=== PATIENT | female | born 1985 | race Caucasian/White ===

== ENCOUNTER 2016-12-16 12:27 | Emergency (ER) | payer OTHER ==
[~2016-12-16] VITALS: Ht 157.5 cm; Wt 136.1 kg
[~2016-12-16 12:27] MED LIST: 'zithromax250 MG PO; ALBUTEROL0.09 MG/A2 INH; AMOXICILLIN500 M3 PO; AMOXICILLIN500 MG PO; AMOXIL500 M1 PO; ATIVAN1 MG PO; AUGMENTIN 875875 MG PO; BACTRIM DS 8001 TA1 PO; BACTROBAN CREAM15 GM T; BENADRYL ALLERG25 M5 PO; BENADRYL25 M1 PO; BENADRYL25 M2 PO; BIRTH CONTROL PO; CALCIUM600 M2 PO; CELEXA40 MG PO; CEPHALEXIN500 M1 PO; CIPROFLOXACIN500 MG PO; CLARITIN10 MG PO; CLEOCIN150 MG PO; CLINDAMYCIN HC300 MG PO; CLINDAMYCIN150 MG PO; COLACE100 MG PO; COMBIVENT1 ARO IH; CORDROL20 MG PO; CYCLOBENZAPRINE5 M3 PO; DARVOCET N 1001 TAB PO; DELTASONE20 M1 PO; DIFLUCAN150 MG PO; DOXYCYCLINE100 MG PO; FLEXERIL10 MG PO; FLONASE 0.05% 121 EA NAS; FLONASE ALLERG9.9 ML NAS; FLONASE ALLERG9.9 ML NS; FLONASE0.05 MG/AC NS; FLUTICASON0.05 MG/AC NAS; Fioricet 325 MG1 TAB PO; GOOD NEIGHBOR L10 MG PO; IBU800 M1 PO; IBU800 MG PO; KEFLEX500 MG PO; LAMICTAL ODT50 MG MM; LEVOFLOXACIN500 MG PO; LIDEX 0.05% CRE15 GM T; LOMOTIL 0.025 M1 TA1 PO; LORAZEPAM1 MG PO; MACROBID100 M1 PO; MACRODANTIN100 MG PO; MEDROL DOSEPAK4 MG PO; MELATONIN1 M1 PO; MIRALAX17 GM PO; MONO-LINYAH 281 EACH PO; MOTRIN800 MG PO; Motrin,Rufen800 MG PO; NAPROSYN500 MG PO; NATURAL ZINC1 TAB PO; NKHM PO; NORCO 10-325 T1 EACH PO; OMEPRAZOLE MAGN20 MG PO; ONE DAILY ESSE1 EACH PO; Orphenadrine C100 MG PO; PEPCID20 MG PO; PHENERGAN W/DM120 ML PO; PREDNICOT10 MG PO; PREDNICOT20 MG PO; PREDNISONE10 MG PO; PREDNISONE20 M1 PO; PROVENTIL0.09 MG/A1 INH; PYRIDIUM200 M1 PO; PYRIDIUM200 MG PO; ROBITUSSIN DM 105 ML PO; ROBITUSSIN5 ML PO; TAB-A-VITE1 TA1 PO; TESSALON PERLE100 M1 PO; TRAMADOL HCL50 MG PO; TYLENOL325 M1 PO; ULTRAM50 MG PO; VIBRAMYCIN100 MG PO; VISTARIL25 MG PO; VITAMIN C500 M4 PO; VITAMIN D-32000 UNI1 PO; VITAMIN E400 UNI2 PO; WELLBUTRIN SR150 MG PO; ZANTAC 150150 MG PO; ZITHROMAX Z PA250 MG PO; ZOFRAN ODT4 MG SL; ZOFRAN4 MG PO; ZYRTEC10 M3 PO; ZYRTEC10 MG PO; Zofran4 MG PO
[2016-12-16] MEDS ORDERED: COL-RITE100 M1 PO (12:39)
[2016-12-16] MEDS ORDERED: MONO-LINYAH 281 EACH PO (12:40)
[2016-12-16] MEDS ORDERED: APAP325 MG PO (13:40)
== END 2016-12-16 14:45 | disposition home or self-care (01) ==
LOC: ED 12:27
DX: S46.912A Strain of unspecified muscle, fascia and tendon at shoulder and upper arm level, left arm, initial encounter (principal); F17.200 Nicotine dependence, unspecified, uncomplicated; I10 Essential (primary) hypertension; F41.9 Anxiety disorder, unspecified; K21.9 Gastro-esophageal reflux disease without esophagitis; K58.9 Irritable bowel syndrome, unspecified; G40.909 Epilepsy, unspecified, not intractable, without status epilepticus; Z79.899 Other long term (current) drug therapy; Z91.041 Radiographic dye allergy status; Z88.1 Allergy status to other antibiotic agents; Z88.5 Allergy status to narcotic agent; Z91.040 Latex allergy status; Y04.0XXA Assault by unarmed brawl or fight, initial encounter; Y93.89 Activity, other specified; Y92.22 Religious institution as the place of occurrence of the external cause; Y99.9 Unspecified external cause status

== ENCOUNTER 2016-12-26 19:12 | Emergency (ER) | payer OTHER ==
[~2016-12-26 19:12] MED LIST changes: +APAP325 MG PO; +COL-RITE100 M1 PO
[2016-12-26] MEDS ORDERED: TRAZODONE50 MG PO (19:29)
[2016-12-26] MEDS ORDERED: PREDNISONE10 MG PO (20:44)
[2016-12-26] MEDS ORDERED: CLARITIN10 MG PO (20:44)
[2016-12-26] MEDS ORDERED: ROBITUSSIN DM 105 ML PO (20:44)
[2016-12-26] MEDS ORDERED: FLONASE ALLERG9.9 ML NAS (20:44)
== END 2016-12-26 21:12 | disposition home or self-care (01) ==
LOC: ED 19:12
DX: B34.9 Viral infection, unspecified (principal); R03.0 Elevated blood-pressure reading, without diagnosis of hypertension; G43.909 Migraine, unspecified, not intractable, without status migrainosus; I10 Essential (primary) hypertension; K21.9 Gastro-esophageal reflux disease without esophagitis; K58.9 Irritable bowel syndrome, unspecified; F41.9 Anxiety disorder, unspecified; Z88.1 Allergy status to other antibiotic agents; Z88.6 Allergy status to analgesic agent; Z91.018 Allergy to other foods; Z91.030 Bee allergy status; Z91.013 Allergy to seafood

== ENCOUNTER 2016-12-29 13:00 | Emergency (ER) | payer OTHER ==
[~2016-12-29] VITALS: Wt 136.5 kg
[~2016-12-29 13:00] MED LIST changes: +TRAZODONE50 MG PO
== END 2016-12-29 16:12 | disposition home or self-care (01) ==
LOC: ED 13:00
DX: S16.1XXA Strain of muscle, fascia and tendon at neck level, initial encounter (principal); S09.90XA Unspecified injury of head, initial encounter; F17.200 Nicotine dependence, unspecified, uncomplicated; Z79.899 Other long term (current) drug therapy; Z91.013 Allergy to seafood; Z91.038 Other insect allergy status; Z88.1 Allergy status to other antibiotic agents; Z88.5 Allergy status to narcotic agent; Z91.040 Latex allergy status; Y08.89XA Assault by other specified means, initial encounter; Y93.89 Activity, other specified; Y92.89 Other specified places as the place of occurrence of the external cause; Y99.9 Unspecified external cause status

== ENCOUNTER 2017-01-17 09:21 | Emergency (ER) | payer OTHER ==
[~2017-01-17] VITALS: Ht 157.4 cm; Wt 136.5 kg
[2017-01-17] MEDS ORDERED: VITAMIN D5000 I3 PO (09:29)
[2017-01-17] MEDS ORDERED: GOOD NEIGHBOR L10 MG PO (09:30)
[2017-01-17] MEDS ORDERED: GLUCOPHAGE500 M1 PO (09:30)
[2017-01-17] MEDS ORDERED: AMOXICILLIN875 MG PO (09:30)
[2017-01-17] MEDS ORDERED: MONO-LINYAH 281 EACH PO (09:32)
[2017-01-17] MEDS ORDERED: CITALOPRAM HYDR20 MG PO (09:36)
[2017-01-17] MEDS ORDERED: BUSPIRONE HCL7.5 MG PO (09:36)
[2017-01-17] MEDS ORDERED: NOVAPLUS V0.09 MG/Ac INH (09:36)
[2017-01-17] MEDS ORDERED: REXULTI0.5 MG PO (09:37)
[2017-01-17] MEDS ORDERED: Motrin,Rufen800 MG PO (11:23)
[2017-01-17] MEDS ORDERED: TYLENOL325 M1 PO (11:23)
== END 2017-01-17 11:07 | disposition home or self-care (01) ==
LOC: ED 09:21
DX: S80.11XA Contusion of right lower leg, initial encounter (principal); I10 Essential (primary) hypertension; G43.909 Migraine, unspecified, not intractable, without status migrainosus; K21.9 Gastro-esophageal reflux disease without esophagitis; K58.9 Irritable bowel syndrome, unspecified; F41.9 Anxiety disorder, unspecified; Z88.1 Allergy status to other antibiotic agents; Z88.6 Allergy status to analgesic agent; Z91.040 Latex allergy status; Z91.013 Allergy to seafood; Z91.018 Allergy to other foods; Z91.030 Bee allergy status; W18.09XA Striking against other object with subsequent fall, initial encounter; Y93.89 Activity, other specified; Y92.9 Unspecified place or not applicable; Y99.9 Unspecified external cause status

== ENCOUNTER 2017-02-03 21:16 | Emergency (ER) | payer OTHER ==
[~2017-02-03] VITALS: Ht 160 cm
[~2017-02-03 21:16] MED LIST changes: +AMOXICILLIN875 MG PO; +BUSPIRONE HCL7.5 MG PO; +CITALOPRAM HYDR20 MG PO; +GLUCOPHAGE500 M1 PO; +NOVAPLUS V0.09 MG/Ac INH; +REXULTI0.5 MG PO; +VITAMIN D5000 I3 PO
== END 2017-02-03 22:14 | disposition home or self-care (01) ==
LOC: ED 21:16
DX: R21 Rash and other nonspecific skin eruption (principal); Z79.899 Other long term (current) drug therapy; Z91.040 Latex allergy status; Z88.1 Allergy status to other antibiotic agents; Z91.013 Allergy to seafood; Z91.030 Bee allergy status; Z88.5 Allergy status to narcotic agent

== ENCOUNTER 2017-02-28 14:09 | Emergency (ER) | payer OTHER ==
[~2017-02-28] VITALS: Ht 157.4 cm; Wt 136.1 kg
== END 2017-02-28 15:20 | disposition home or self-care (01) ==
LOC: ED 14:09
DX: F41.9 Anxiety disorder, unspecified (principal); Z91.030 Bee allergy status; Z88.1 Allergy status to other antibiotic agents; Z88.6 Allergy status to analgesic agent; Z91.040 Latex allergy status; Z91.013 Allergy to seafood; Z91.018 Allergy to other foods; Z79.899 Other long term (current) drug therapy

== ENCOUNTER 2017-03-17 18:23 | Emergency (ER) | payer OTHER ==
[~2017-03-17] VITALS: Wt 136.1 kg
[2017-03-17 19:09] LABS: BILIRUBIN NEGATIVE (NEGATIVE); BLOOD NEGATIVE (NEGATIVE); CLARITY CLEAR (CLEAR); COLOR YELLOW (YELLOW); GLUCOSE NEGATIVE (NEGATIVE); KETONE 1+ (NEGATIVE); LEUKO ESTERASE 1+ (NEGATIVE); NITRITE NEGATIVE (NEGATIVE); PROTEIN NEGATIVE (NEGATIVE); SPECIFIC GRAVITY 1.015 (1.005-1.030)
[2017-03-17] MEDS ORDERED: ZOFRAN ODT4 MG SL (19:15)
[2017-03-17 19:20] LABS: BACTERIA TRACE; URINE REFLEX COMMENT YES (NO)
== END 2017-03-17 19:55 | disposition home or self-care (01) ==
LOC: ED 18:23
PROVIDERS: Physician Assistant
DX: A08.4 Viral intestinal infection, unspecified (principal); L55.9 Sunburn, unspecified; Z91.030 Bee allergy status; Z88.1 Allergy status to other antibiotic agents; Z88.6 Allergy status to analgesic agent; Z91.018 Allergy to other foods; Z91.013 Allergy to seafood; Z79.899 Other long term (current) drug therapy

== ENCOUNTER 2017-05-12 22:23 | Emergency (ER) | payer OTHER ==
[~2017-05-12] VITALS: Ht 157.4 cm; Wt 136.1 kg
== END 2017-05-12 23:46 | disposition home or self-care (01) ==
LOC: ED 22:23
DX: M25.552 Pain in left hip (principal); I10 Essential (primary) hypertension; K21.9 Gastro-esophageal reflux disease without esophagitis; G40.909 Epilepsy, unspecified, not intractable, without status epilepticus; G43.909 Migraine, unspecified, not intractable, without status migrainosus; Z91.030 Bee allergy status; Z88.1 Allergy status to other antibiotic agents; Z88.6 Allergy status to analgesic agent; Z91.018 Allergy to other foods; Z91.040 Latex allergy status; Z91.013 Allergy to seafood; Z79.899 Other long term (current) drug therapy

== ENCOUNTER 2017-08-14 15:18 | Emergency (ER) | payer OTHER ==
[~2017-08-14] VITALS: Ht 157.4 cm; Wt 154.7 kg
== END 2017-08-14 18:12 | disposition home or self-care (01) ==
LOC: ED 15:18
DX: S93.402A Sprain of unspecified ligament of left ankle, initial encounter (principal); Z91.030 Bee allergy status; Z88.1 Allergy status to other antibiotic agents; Z91.040 Latex allergy status; Z91.013 Allergy to seafood; Z91.018 Allergy to other foods; Z79.899 Other long term (current) drug therapy; X50.1XXA Overexertion from prolonged static or awkward postures, initial encounter; Y93.89 Activity, other specified; Y92.89 Other specified places as the place of occurrence of the external cause; Y99.8 Other external cause status

== ENCOUNTER 2017-08-22 02:41 | Emergency (ER) | payer OTHER ==
[~2017-08-22] VITALS: Ht 157.4 cm; Wt 154.2 kg
[2017-08-22] MEDS ORDERED: PROAIR HFA8.5 GM INH (03:48)
[2017-08-22] MEDS ORDERED: ROBITUSSIN DM 105 ML PO (03:48)
[2017-08-22] MEDS ORDERED: CLINDAMYCIN150 MG PO (03:48)
== END 2017-08-22 04:33 | disposition home or self-care (01) ==
LOC: ED 02:41
DX: J20.9 Acute bronchitis, unspecified (principal); I10 Essential (primary) hypertension; K21.9 Gastro-esophageal reflux disease without esophagitis; G43.909 Migraine, unspecified, not intractable, without status migrainosus; Z79.899 Other long term (current) drug therapy; Z91.013 Allergy to seafood; Z91.030 Bee allergy status; Z88.1 Allergy status to other antibiotic agents; Z91.040 Latex allergy status; Z88.6 Allergy status to analgesic agent; Z91.018 Allergy to other foods

== ENCOUNTER 2018-01-04 12:43 | Emergency (ER) | payer OTHER ==
[~2018-01-04] VITALS: Ht 157.4 cm; Wt 162.4 kg
[~2018-01-04 12:43] MED LIST changes: +PROAIR HFA8.5 GM INH
[2018-01-04 13:21] LABS: BILIRUBIN 1+ (NEGATIVE); BLOOD 1+ (NEGATIVE); CLARITY CLOUDY (CLEAR); COLOR YELLOW (YELLOW); GLUCOSE NEGATIVE (NEGATIVE); KETONE 1+ (NEGATIVE); LEUKO ESTERASE 3+ (NEGATIVE); NITRITE NEGATIVE (NEGATIVE); PH 6.5 (5.0-9.0)
[2018-01-04 13:35] LABS: BACTERIA 1+; WBC TNTC wbc/hpf (0-5)
[2018-01-04] MEDS ORDERED: SEPTDS PO (13:55)
[2018-01-04] MEDS ORDERED: DIFLUCAN150 MG PO (14:08)
== END 2018-01-04 13:58 | disposition home or self-care (01) ==
LOC: ED 12:43
PROVIDERS: Emergency Medicine
DX: N39.0 Urinary tract infection, site not specified (principal); J40 Bronchitis, not specified as acute or chronic; F41.9 Anxiety disorder, unspecified; K21.9 Gastro-esophageal reflux disease without esophagitis; G40.909 Epilepsy, unspecified, not intractable, without status epilepticus; K58.9 Irritable bowel syndrome, unspecified; I10 Essential (primary) hypertension; G43.909 Migraine, unspecified, not intractable, without status migrainosus; Z88.6 Allergy status to analgesic agent; Z91.041 Radiographic dye allergy status; Z91.018 Allergy to other foods; Z91.030 Bee allergy status; Z91.013 Allergy to seafood; Z91.040 Latex allergy status; Z88.1 Allergy status to other antibiotic agents; Z79.899 Other long term (current) drug therapy; Z79.84 Long term (current) use of oral hypoglycemic drugs

== ENCOUNTER 2018-01-18 14:20 | Emergency (ER) | payer OTHER ==
[~2018-01-18] VITALS: Ht 157.4 cm; Wt 159.2 kg
[~2018-01-18 14:20] MED LIST changes: +SEPTDS PO
[2018-01-18] MEDS ORDERED: NAPROSYN500 MG PO (14:58)
== END 2018-01-18 15:41 | disposition home or self-care (01) ==
LOC: ED 14:20
DX: S83.92XA Sprain of unspecified site of left knee, initial encounter (principal); R03.0 Elevated blood-pressure reading, without diagnosis of hypertension; K21.9 Gastro-esophageal reflux disease without esophagitis; G43.909 Migraine, unspecified, not intractable, without status migrainosus; G40.909 Epilepsy, unspecified, not intractable, without status epilepticus; Z91.030 Bee allergy status; Z88.1 Allergy status to other antibiotic agents; Z79.899 Other long term (current) drug therapy; Z88.5 Allergy status to narcotic agent; Z91.040 Latex allergy status; Z91.013 Allergy to seafood; Z91.018 Allergy to other foods; X50.1XXA Overexertion from prolonged static or awkward postures, initial encounter; Y93.89 Activity, other specified; Y92.89 Other specified places as the place of occurrence of the external cause; Y99.9 Unspecified external cause status

== ENCOUNTER 2018-02-07 13:16 | Emergency (ER) | payer SELFPAY ==
[~2018-02-07] VITALS: Ht 157.4 cm; Wt 158.8 kg
[2018-02-07] MEDS ORDERED: AMOXICILLIN500 M2 PO (13:46)
[2018-02-07] MEDS ORDERED: BROMFED DM COU118 M2 PO (14:01)
== END 2018-02-07 14:02 | disposition home or self-care (01) ==
LOC: ED 13:16
DX: J01.00 Acute maxillary sinusitis, unspecified (principal); K21.9 Gastro-esophageal reflux disease without esophagitis; G40.909 Epilepsy, unspecified, not intractable, without status epilepticus; I10 Essential (primary) hypertension; K58.9 Irritable bowel syndrome, unspecified; Z91.041 Radiographic dye allergy status; Z91.040 Latex allergy status; Z91.013 Allergy to seafood; Z91.018 Allergy to other foods; Z91.030 Bee allergy status; Z88.6 Allergy status to analgesic agent; Z88.1 Allergy status to other antibiotic agents; Z79.84 Long term (current) use of oral hypoglycemic drugs; Z79.899 Other long term (current) drug therapy

== ENCOUNTER 2018-03-03 02:06 | Emergency (ER) | payer SELFPAY ==
[~2018-03-03] VITALS: Ht 165.1 cm; Wt 204.1 kg
[~2018-03-03 02:06] MED LIST changes: +AMOXICILLIN500 M2 PO; +BROMFED DM COU118 M2 PO
[2018-03-03] MEDS ORDERED: CELEXA20 MG PO (03:00)
[2018-03-03] MEDS ORDERED: BUSPAR5 MG PO (03:00)
== END 2018-03-03 03:24 | disposition home or self-care (01) ==
LOC: ED 02:06
DX: F41.1 Generalized anxiety disorder (principal); E66.01 Morbid (severe) obesity due to excess calories; I10 Essential (primary) hypertension; K21.9 Gastro-esophageal reflux disease without esophagitis; G43.909 Migraine, unspecified, not intractable, without status migrainosus; G40.909 Epilepsy, unspecified, not intractable, without status epilepticus; Z79.899 Other long term (current) drug therapy; Z88.1 Allergy status to other antibiotic agents; Z88.5 Allergy status to narcotic agent; Z91.030 Bee allergy status; Z91.040 Latex allergy status; Z91.013 Allergy to seafood; Z91.018 Allergy to other foods

== ENCOUNTER 2018-03-09 19:21 | Emergency (ER) | payer SELFPAY ==
[~2018-03-09] VITALS: Ht 157.4 cm; Wt 145.1 kg
[~2018-03-09 19:21] MED LIST changes: +BUSPAR5 MG PO; +CELEXA20 MG PO
== END 2018-03-09 21:02 | disposition home or self-care (01) ==
LOC: ED 19:21
DX: S39.012A Strain of muscle, fascia and tendon of lower back, initial encounter (principal); Z79.899 Other long term (current) drug therapy; Z91.030 Bee allergy status; Z88.1 Allergy status to other antibiotic agents; Z88.8 Allergy status to other drugs, medicaments and biological substances; Z91.040 Latex allergy status; Z91.013 Allergy to seafood; Z88.5 Allergy status to narcotic agent; W01.0XXA Fall on same level from slipping, tripping and stumbling without subsequent striking against object, initial encounter; Y93.89 Activity, other specified; Y92.89 Other specified places as the place of occurrence of the external cause; Y99.9 Unspecified external cause status

== ENCOUNTER 2018-03-13 16:29 | Emergency (ER) | payer SELFPAY ==
[~2018-03-13] VITALS: Ht 157.4 cm; Wt 149.7 kg
== END 2018-03-13 18:22 | disposition home or self-care (01) ==
LOC: ED 16:29
DX: S96.811A Strain of other specified muscles and tendons at ankle and foot level, right foot, initial encounter (principal); Z91.030 Bee allergy status; Z88.1 Allergy status to other antibiotic agents; Z91.040 Latex allergy status; Z91.013 Allergy to seafood; Z91.018 Allergy to other foods; X50.1XXA Overexertion from prolonged static or awkward postures, initial encounter; Y93.89 Activity, other specified; Y92.89 Other specified places as the place of occurrence of the external cause; Y99.8 Other external cause status

== ENCOUNTER 2018-07-10 05:04 | Emergency (ER) | payer OTHER ==
[~2018-07-10] VITALS: Ht 157.4 cm; Wt 136.1 kg
[2018-07-10] MEDS ORDERED: ZOFRAN ODT4 MG SL (06:47)
== END 2018-07-10 06:59 | disposition home or self-care (01) ==
LOC: ED 05:04
DX: S83.91XA Sprain of unspecified site of right knee, initial encounter (principal); S09.90XA Unspecified injury of head, initial encounter; K21.9 Gastro-esophageal reflux disease without esophagitis; I10 Essential (primary) hypertension; G43.909 Migraine, unspecified, not intractable, without status migrainosus; Z91.030 Bee allergy status; Z88.1 Allergy status to other antibiotic agents; Z88.5 Allergy status to narcotic agent; Z91.041 Radiographic dye allergy status; Z91.018 Allergy to other foods; Z91.013 Allergy to seafood; W01.198A Fall on same level from slipping, tripping and stumbling with subsequent striking against other object, initial encounter; Y93.89 Activity, other specified; Y92.89 Other specified places as the place of occurrence of the external cause; Y99.8 Other external cause status

== ENCOUNTER 2018-07-20 19:24 | Emergency (ER) | payer OTHER ==
[~2018-07-20] VITALS: Ht 160 cm; Wt 136.1 kg
== END 2018-07-20 22:25 | disposition home or self-care (01) ==
LOC: ED 19:24
DX: S16.1XXA Strain of muscle, fascia and tendon at neck level, initial encounter (principal); S40.012A Contusion of left shoulder, initial encounter; S20.212A Contusion of left front wall of thorax, initial encounter; S09.90XA Unspecified injury of head, initial encounter; Z91.030 Bee allergy status; Z88.1 Allergy status to other antibiotic agents; Z88.5 Allergy status to narcotic agent; Z91.041 Radiographic dye allergy status; Z91.040 Latex allergy status; Z91.018 Allergy to other foods; Z91.013 Allergy to seafood; V49.9XXA Car occupant (driver) (passenger) injured in unspecified traffic accident, initial encounter; Y93.I9 Activity, other involving external motion; Y92.488 Other paved roadways as the place of occurrence of the external cause; Y99.8 Other external cause status

== ENCOUNTER 2018-08-20 18:57 | Emergency (ER) | payer OTHER ==
[~2018-08-20] VITALS: Ht 157.4 cm; Wt 136.1 kg
[2018-08-20 19:44] LABS: BILIRUBIN 1+ (NEGATIVE); BLOOD 3+ (NEGATIVE); CLARITY SL CLOUDY (CLEAR); COLOR YELLOW (YELLOW); GLUCOSE NEGATIVE (NEGATIVE); KETONE TRACE (NEGATIVE); LEUKO ESTERASE 1+ (NEGATIVE); NITRITE NEGATIVE (NEGATIVE); SPECIFIC GRAVITY >= 1.030 (1.005-1.030); UROBILINOGEN 0.2 E.U./dl (0.2-1.0)
[2018-08-20 19:50] LABS: BACTERIA 2+; EPITHELIAL CELLS TNTC; MUCOUS 1+
[2018-08-20] MEDS ORDERED: SEPTDS PO (20:02)
[2018-08-20] MEDS ORDERED: ZYRTEC10 MG PO (20:02)
[2018-08-20] MEDS ORDERED: FLONASE ALLERG9.9 ML NAS (20:02)
== END 2018-08-20 20:25 | disposition home or self-care (01) ==
LOC: ED 18:57
PROVIDERS: Nurse Practitioner
DX: J01.90 Acute sinusitis, unspecified (principal); N39.0 Urinary tract infection, site not specified; Z91.030 Bee allergy status; Z88.1 Allergy status to other antibiotic agents; Z88.6 Allergy status to analgesic agent; Z91.018 Allergy to other foods; Z91.040 Latex allergy status; Z91.013 Allergy to seafood

== ENCOUNTER 2018-12-26 02:15 | Emergency (ER) | payer OTHER ==
[~2018-12-26] VITALS: Ht 157.4 cm; Wt 147.4 kg
[2018-12-26] MEDS ORDERED: NAPROSYN EC375 MG PO (04:27)
[2018-12-26] MEDS ORDERED: ZOFRAN4 MG PO (04:27)
[2019-02-06] MEDS ORDERED: ZOFRAN4 MG PO (23:14)
== END 2018-12-26 04:59 | disposition home or self-care (01) ==
LOC: ED 02:15
DX: G43.909 Migraine, unspecified, not intractable, without status migrainosus (principal); I10 Essential (primary) hypertension; G40.909 Epilepsy, unspecified, not intractable, without status epilepticus; K21.9 Gastro-esophageal reflux disease without esophagitis; F17.200 Nicotine dependence, unspecified, uncomplicated; Z91.030 Bee allergy status; Z88.1 Allergy status to other antibiotic agents; Z88.5 Allergy status to narcotic agent; Z91.018 Allergy to other foods; Z91.040 Latex allergy status; Z91.013 Allergy to seafood

== ENCOUNTER 2019-05-31 16:59 | Emergency (ER) | payer OTHER ==
[~2019-05-31] VITALS: Ht 157.4 cm; Wt 149.2 kg
[~2019-05-31 16:59] MED LIST changes: +NAPROSYN EC375 MG PO
[2019-05-31] MEDS ORDERED: MOBIC7.5 MG PO (17:58)
== END 2019-05-31 18:16 | disposition home or self-care (01) ==
LOC: ED 16:59
DX: M25.562 Pain in left knee (principal); Z88.1 Allergy status to other antibiotic agents; Z88.6 Allergy status to analgesic agent; Z91.018 Allergy to other foods; Z91.040 Latex allergy status; Z91.013 Allergy to seafood; Z91.030 Bee allergy status

== ENCOUNTER 2019-08-30 19:15 | Emergency (ER) | payer OTHER ==
[~2019-08-30] VITALS: Ht 160 cm; Wt 149.2 kg
[~2019-08-30 19:15] MED LIST changes: +MOBIC7.5 MG PO
[2019-08-30 20:32] LABS: ALBUMIN 3.4 gm/dl (3.1-4.5); ALKALINE PHOSPHATASE 98 U/L (45-117); BUN 11 mg/dl (7-24); CHLORIDE 107 mmol/L (98-107); CREATININE 1.23 mg/dL (0.55-1.02); LIPASE 190 U/L (73-393); POTASSIUM 3.8 mmol/L (3.5-5.1); SGOT/AST 17 IU/L (3-35); SGPT/ALT 19 U/L (12-78); SODIUM 140 mmol/L (136-145); TOTAL PROTEIN 7.7 gm/dL (6.4-8.2)
[2019-08-30 20:36] LABS: BASO % 0.1 % (0.0-1.0); EOS # 0.1 10*3/uL (0.0-0.4); EOS % 0.5 % (1.0-4.0); HEMATOCRIT 42.1 % (37.0-47.0); HEMOGLOBIN 13.6 g/dl (12.0-16.0); LYMPH # 3.5 10*3/uL (1.3-4.4); LYMPH % 35.3 % (27.0-41.0); MEAN CELL VOLUME 91.5 fl (81.0-99.0); MEAN CORPUSCULAR HGB 29.6 pg (27.0-31.0); MEAN CORPUSCULAR HGB CONC 32.3 g/dl (33.0-37.0); MEAN PLATELET VOLUME 10.1 fl (9.6-12.3); MONO # 0.5 10*3/uL (0.1-1.0); MONO % 4.6 % (3.0-9.0); NEUT # 5.9 10*3/uL (2.3-7.9); NEUT % 59.3 % (47.0-73.0); PLATELET COUNT AUTOMATED 290 10*3/uL (130-400); RED CELL DISTRI WIDTH 12.8 % (0-14.5); WHITE BLOOD COUNT 9.9 10*3/uL (4.8-10.8)
[2019-08-30] MEDS ORDERED: PRENATAL TABLE1 EAC2 PO (20:48)
[2019-08-30 20:58] LABS: BILIRUBIN NEGATIVE (NEGATIVE); BLOOD NEGATIVE (NEGATIVE); CLARITY CLEAR (CLEAR); COLOR YELLOW (YELLOW); GLUCOSE NEGATIVE (NEGATIVE); KETONE TRACE (NEGATIVE); LEUKO ESTERASE NEGATIVE (NEGATIVE); NITRITE NEGATIVE (NEGATIVE); PH 5.5 (5.0-9.0); SPECIFIC GRAVITY >= 1.030 (1.005-1.030); UROBILINOGEN 0.2 E.U./dl (0.2-1.0)
[2019-08-30 21:07] LABS: EPITHELIAL CELLS 41-50
== END 2019-08-30 21:40 | disposition home or self-care (01) ==
LOC: ED 19:15
PROVIDERS: Nurse Practitioner Family
DX: R11.2 Nausea with vomiting, unspecified (principal); J44.9 Chronic obstructive pulmonary disease, unspecified; Z32.01 Encounter for pregnancy test, result positive; Z91.030 Bee allergy status; Z88.1 Allergy status to other antibiotic agents; Z88.6 Allergy status to analgesic agent; Z91.040 Latex allergy status; Z91.013 Allergy to seafood; Z91.018 Allergy to other foods

== ENCOUNTER → 2019-09-30 | Outpatient (CLI) | payer OTHER ==
[~2019-09-30] MED LIST changes: +PRENATAL TABLE1 EAC2 PO
== END | disposition home or self-care (01) ==
LOC: US 16:51
DX: Z34.81 Encounter for supervision of other normal pregnancy, first trimester (principal); Z3A.09 9 weeks gestation of pregnancy

== ENCOUNTER 2019-10-08 14:45 | Emergency (ER) | payer OTHER ==
[~2019-10-08] VITALS: Ht 160 cm; Wt 149.7 kg
[2019-10-08] MEDS ORDERED: AMOXICILLIN500 M3 PO (15:47)
== END 2019-10-08 15:50 | disposition home or self-care (01) ==
LOC: ED 14:45
DX: O99.611 Diseases of the digestive system complicating pregnancy, first trimester (principal); K04.7 Periapical abscess without sinus; O99.511 Diseases of the respiratory system complicating pregnancy, first trimester; J44.9 Chronic obstructive pulmonary disease, unspecified; O99.351 Diseases of the nervous system complicating pregnancy, first trimester; G40.909 Epilepsy, unspecified, not intractable, without status epilepticus; O99.331 Smoking (tobacco) complicating pregnancy, first trimester; Z3A.10 10 weeks gestation of pregnancy; Z91.030 Bee allergy status; Z88.1 Allergy status to other antibiotic agents; Z88.5 Allergy status to narcotic agent; Z91.018 Allergy to other foods; Z91.040 Latex allergy status; Z91.013 Allergy to seafood; Z79.899 Other long term (current) drug therapy

== ENCOUNTER 2019-10-16 17:13 | Emergency (ER) | payer OTHER ==
[~2019-10-16] VITALS: Ht 157.4 cm; Wt 151.0 kg
[2019-10-16 18:07] LABS: HEMATOCRIT 37.3 % (37.0-47.0); HEMOGLOBIN 12.6 g/dl (12.0-16.0); LYMPH # 0.9 10*3/uL (1.3-4.4); LYMPH % 17.8 % (27.0-41.0); MEAN CELL VOLUME 90.5 fl (81.0-99.0); MEAN CORPUSCULAR HGB 30.6 pg (27.0-31.0); MEAN CORPUSCULAR HGB CONC 33.8 g/dl (33.0-37.0); MEAN PLATELET VOLUME 10.5 fl (9.6-12.3); MONO # 0.3 10*3/uL (0.1-1.0); MONO % 6.3 % (3.0-9.0); NEUT # 3.8 10*3/uL (2.3-7.9); NEUT % 75.7 % (47.0-73.0); PLATELET COUNT AUTOMATED 186 10*3/uL (130-400); RED BLOOD COUNT 4.12 10*6/uL (4.10-5.10); RED CELL DISTRI WIDTH 12.1 % (0-14.5)
[2019-10-16 18:21] LABS: ALBUMIN 2.8 gm/dl (3.1-4.5); ALKALINE PHOSPHATASE 69 U/L (45-117); BUN 8 mg/dl (7-24); CHLORIDE 108 mmol/L (98-107); CREATININE 0.81 mg/dL (0.55-1.02); POTASSIUM 3.7 mmol/L (3.5-5.1); SGOT/AST 9 IU/L (3-35); SGPT/ALT 14 U/L (12-78); SODIUM 138 mmol/L (136-145); TOTAL PROTEIN 6.9 gm/dL (6.4-8.2)
== END 2019-10-16 19:12 | disposition home or self-care (01) ==
LOC: ED 17:13
PROVIDERS: Emergency Medicine
DX: O99.511 Diseases of the respiratory system complicating pregnancy, first trimester (principal); J06.9 Acute upper respiratory infection, unspecified; O21.9 Vomiting of pregnancy, unspecified; O99.611 Diseases of the digestive system complicating pregnancy, first trimester; K21.9 Gastro-esophageal reflux disease without esophagitis; G40.909 Epilepsy, unspecified, not intractable, without status epilepticus; O99.351 Diseases of the nervous system complicating pregnancy, first trimester; G43.909 Migraine, unspecified, not intractable, without status migrainosus; Z3A.11 11 weeks gestation of pregnancy; Z91.030 Bee allergy status; Z88.1 Allergy status to other antibiotic agents; Z88.5 Allergy status to narcotic agent; Z91.018 Allergy to other foods; Z88.8 Allergy status to other drugs, medicaments and biological substances; Z91.013 Allergy to seafood; Z91.040 Latex allergy status; Z79.2 Long term (current) use of antibiotics; Z79.899 Other long term (current) drug therapy

== ENCOUNTER → 2019-11-19 | Outpatient (CLI) | payer OTHER | END | disposition home or self-care (01) | LOC: US 11:55 | DX: Z13.1 Encounter for screening for diabetes mellitus (principal); I10 Essential (primary) hypertension; R35.0 Frequency of micturition; R53.83 Other fatigue ==

== ENCOUNTER 2020-03-29 18:50 | Emergency (ER) | payer OTHER ==
[~2020-03-29] VITALS: Ht 157.4 cm; Wt 136.1 kg
[2020-03-29] MEDS ORDERED: CAMILA0.35 MG PO (19:23)
[2020-03-29] MEDS ORDERED: AMOXICILLIN500 M2 PO (22:19)
== END 2020-03-29 22:35 | disposition home or self-care (01) ==
LOC: ED 18:50
DX: G43.909 Migraine, unspecified, not intractable, without status migrainosus (principal); K02.9 Dental caries, unspecified; I10 Essential (primary) hypertension; K21.9 Gastro-esophageal reflux disease without esophagitis; J44.9 Chronic obstructive pulmonary disease, unspecified; Z91.030 Bee allergy status; Z88.1 Allergy status to other antibiotic agents; Z88.6 Allergy status to analgesic agent; Z91.018 Allergy to other foods; Z91.013 Allergy to seafood; Z91.040 Latex allergy status; Z79.899 Other long term (current) drug therapy

== ENCOUNTER 2020-10-14 00:09 | Emergency (ER) | payer OTHER ==
[~2020-10-14 00:09] MED LIST changes: +CAMILA0.35 MG PO
[2020-10-14] MEDS ORDERED: GYNE-LOTRIMIN-745 GM V (02:59)
[2020-10-14] MEDS ORDERED: CYCLOBENZAPRINE10 MG PO (02:59)
== END 2020-10-14 03:17 | disposition home or self-care (01) ==
LOC: ED 00:09
DX: S30.0XXA Contusion of lower back and pelvis, initial encounter (principal); S40.011A Contusion of right shoulder, initial encounter; S16.1XXA Strain of muscle, fascia and tendon at neck level, initial encounter; B37.3 Candidiasis of vulva and vagina; W10.8XXA Fall (on) (from) other stairs and steps, initial encounter; Y93.89 Activity, other specified; Y92.89 Other specified places as the place of occurrence of the external cause; Y99.8 Other external cause status

== ENCOUNTER 2021-01-06 00:36 | Emergency (ER) | payer OTHER ==
[~2021-01-06] VITALS: Ht 157.4 cm; Wt 154.2 kg
[~2021-01-06 00:36] MED LIST changes: +CYCLOBENZAPRINE10 MG PO; +GYNE-LOTRIMIN-745 GM V
[2021-01-06] MEDS ORDERED: PREDNISONE20 M1 PO (01:19)
== END 2021-01-06 01:46 | disposition home or self-care (01) ==
LOC: ED 00:36
DX: J40 Bronchitis, not specified as acute or chronic (principal); J44.9 Chronic obstructive pulmonary disease, unspecified; F32.9 Major depressive disorder, single episode, unspecified; F41.9 Anxiety disorder, unspecified; Z91.030 Bee allergy status; Z88.5 Allergy status to narcotic agent; Z88.8 Allergy status to other drugs, medicaments and biological substances; Z91.040 Latex allergy status; Z91.013 Allergy to seafood; Z91.018 Allergy to other foods; Z79.899 Other long term (current) drug therapy; Z98.890 Other specified postprocedural states

== ENCOUNTER 2021-01-23 03:12 | Emergency (ER) | payer OTHER ==
[~2021-01-23] VITALS: Ht 157.4 cm; Wt 154.2 kg
== END 2021-01-23 05:55 | disposition home or self-care (01) ==
LOC: ED 03:12
DX: J06.9 Acute upper respiratory infection, unspecified (principal); F41.9 Anxiety disorder, unspecified; K21.9 Gastro-esophageal reflux disease without esophagitis; I10 Essential (primary) hypertension; G43.909 Migraine, unspecified, not intractable, without status migrainosus; Z20.822 Contact with and (suspected) exposure to COVID-19; Z91.030 Bee allergy status; Z88.5 Allergy status to narcotic agent; Z91.013 Allergy to seafood; Z91.041 Radiographic dye allergy status; Z91.018 Allergy to other foods; Z91.040 Latex allergy status

== ENCOUNTER 2021-03-03 19:29 | Emergency (ER) | payer OTHER ==
[~2021-03-03] VITALS: Ht 158.7 cm; Wt 158.8 kg
[2021-03-03] MEDS ORDERED: CLINDAMYCIN HC300 MG PO (21:04)
== END 2021-03-03 21:41 | disposition home or self-care (01) ==
LOC: ED 19:29
DX: K08.89 Other specified disorders of teeth and supporting structures (principal); Z91.030 Bee allergy status; Z88.5 Allergy status to narcotic agent; Z88.8 Allergy status to other drugs, medicaments and biological substances; Z91.040 Latex allergy status; Z79.899 Other long term (current) drug therapy

== ENCOUNTER 2021-08-23 22:31 | Emergency (ER) | payer OTHER ==
[2021-08-24 00:58] LABS: BASO % 0.2 % (0.0-1.0); EOS % 0.2 % (1.0-4.0); HEMATOCRIT 41.9 % (37.0-47.0); LYMPH # 2.2 10*3/uL (1.3-4.4); LYMPH % 47.2 % (27.0-41.0); MEAN CELL VOLUME 88.6 fl (81.0-99.0); MEAN CORPUSCULAR HGB 28.8 pg (27.0-31.0); MEAN CORPUSCULAR HGB CONC 32.5 g/dl (33.0-37.0); MEAN PLATELET VOLUME 10.7 fl (9.6-12.3); MONO # 0.3 10*3/uL (0.1-1.0); MONO % 6.1 % (3.0-9.0); NEUT # 2.2 10*3/uL (2.3-7.9); NEUT % 46.1 % (47.0-73.0); PLATELET COUNT AUTOMATED 177 10*3/uL (130-400); RED BLOOD COUNT 4.73 10*6/uL (4.10-5.10); RED CELL DISTRI WIDTH 13.2 % (0-14.5); WHITE BLOOD COUNT 4.8 10*3/uL (4.8-10.8)
[2021-08-24 01:14] LABS: ALKALINE PHOSPHATASE 91 U/L (45-117); BUN 9 mg/dl (7-24); CHLORIDE 110 mmol/L (98-107); CREATININE 0.89 mg/dL (0.55-1.02); POTASSIUM 3.9 mmol/L (3.5-5.1); SGOT/AST 92 IU/L (3-35); SGPT/ALT 75 U/L (12-78); SODIUM 140 mmol/L (136-145); TOTAL PROTEIN 7.4 gm/dL (6.4-8.2)
[2021-08-24] MEDS ORDERED: VIBRAMYCIN HYC100 MG PO (04:52)
[2021-08-24] MEDS ORDERED: PROAIR HFA8.5 GM INH (04:52)
== END 2021-08-24 05:03 | disposition home or self-care (01) ==
LOC: ED 22:31
PROVIDERS: Emergency Medicine
DX: J40 Bronchitis, not specified as acute or chronic (principal); Z20.822 Contact with and (suspected) exposure to COVID-19; I10 Essential (primary) hypertension

== ENCOUNTER 2021-11-27 15:17 | Emergency (ER) | payer OTHER ==
[~2021-11-27] VITALS: Ht 157.4 cm; Wt 154.2 kg
[~2021-11-27 15:17] MED LIST changes: +VIBRAMYCIN HYC100 MG PO
[2021-11-27 17:06] LABS: BILIRUBIN Negative (Negative); BLOOD Negative (Negative); CLARITY Cloudy (Clear); COLOR Yellow (Yellow); GLUCOSE Negative (Negative); KETONE Trace (Negative); LEUKO ESTERASE Trace (Negative); NITRITE Negative (Negative); SPECIFIC GRAVITY >= 1.030 (1.001-1.030)
[2021-11-27 17:32] LABS: BACTERIA 1+
[2021-11-27 17:33] LABS: CALCIUM OXALATE CRYSTALS 1+
== END 2021-11-27 18:44 | disposition home or self-care (01) ==
LOC: ED 15:17
PROVIDERS: Physician Assistant
DX: T74.21XA Adult sexual abuse, confirmed, initial encounter (principal); Z91.030 Bee allergy status; Z88.1 Allergy status to other antibiotic agents; Z91.040 Latex allergy status; Z91.013 Allergy to seafood; Z91.018 Allergy to other foods; Y92.89 Other specified places as the place of occurrence of the external cause

== ENCOUNTER 2022-10-07 22:36 | Emergency (ER) | payer OTHER ==
[2022-10-07 23:08] LABS: BASO % 0.5 % (0.0-1.0); EOS # 0.1 10*3/uL (0.0-0.4); EOS % 1.2 % (1.0-4.0); HEMATOCRIT 40.7 % (37.0-47.0); LYMPH # 3.7 10*3/uL (1.3-4.4); MEAN CELL VOLUME 87.2 fl (81.0-99.0); MEAN CORPUSCULAR HGB 29.1 pg (27.0-31.0); MEAN CORPUSCULAR HGB CONC 33.4 g/dl (33.0-37.0); MEAN PLATELET VOLUME 9.9 fl (9.6-12.3); MONO # 0.4 10*3/uL (0.1-1.0); MONO % 5.1 % (3.0-9.0); NEUT # 3.8 10*3/uL (2.3-7.9); NEUT % 47.1 % (47.0-73.0); PLATELET COUNT AUTOMATED 258 10*3/uL (130-400); RED BLOOD COUNT 4.67 10*6/uL (4.10-5.10); RED CELL DISTRI WIDTH 13.2 % (0-14.5); WHITE BLOOD COUNT 8.1 10*3/uL (4.8-10.8)
[2022-10-07 23:32] LABS: ALKALINE PHOSPHATASE 80 U/L (46-116); BUN 11 mg/dl (9-23); CHLORIDE 103 mmol/L (98-107); LIPASE 39 U/L (12-53); POTASSIUM 3.8 mmol/L (3.4-5.1); SGPT/ALT 30 U/L (10-49)
[2022-10-08] MEDS ORDERED: NAPROXEN250 MG PO (00:45)
== END 2022-10-08 00:51 | disposition home or self-care (01) ==
LOC: ED 22:36
PROVIDERS: Internal Medicine
DX: R10.11 Right upper quadrant pain (principal); Z91.030 Bee allergy status; Z88.5 Allergy status to narcotic agent; Z91.040 Latex allergy status; Z91.018 Allergy to other foods; F10.90 Alcohol use, unspecified, uncomplicated

== ENCOUNTER → 2022-10-11 | Outpatient (CLI) | payer OTHER ==
[~2022-10-11] MED LIST changes: +NAPROXEN250 MG PO
== END | disposition home or self-care (01) ==
LOC: RAD 14:28
PROVIDERS: ATTEND Nurse Practitioner Family
DX: M25.762 Osteophyte, left knee (principal); M25.512 Pain in left shoulder

== ENCOUNTER 2023-01-02 20:48 | Emergency (ER) | payer OTHER ==
[~2023-01-02] VITALS: Ht 157.4 cm; Wt 176.9 kg
[2023-01-02 21:49] LABS: BILIRUBIN 2+ (Negative); BLOOD 3+ (Negative); CLARITY Turbid (Clear); COLOR Dark Yellow (Yellow); GLUCOSE Negative (Negative); KETONE 2+ (Negative); LEUKO ESTERASE 1+ (Negative); NITRITE Negative (Negative); PH 5.5 (4.5-8.0); SPECIFIC GRAVITY >= 1.030 (1.001-1.030)
[2023-01-02 21:53] LABS: BASO % 0.3 % (0.0-1.0); EOS % 0.4 % (1.0-4.0); HEMATOCRIT 44.9 % (37.0-47.0); LYMPH # 1.9 10*3/uL (1.3-4.4); LYMPH % 24.8 % (27.0-41.0); MEAN CELL VOLUME 86.3 fl (81.0-99.0); MEAN CORPUSCULAR HGB 28.5 pg (27.0-31.0); MEAN PLATELET VOLUME 10.3 fl (9.6-12.3); MONO # 0.4 10*3/uL (0.1-1.0); MONO % 5.4 % (3.0-9.0); NEUT # 5.3 10*3/uL (2.3-7.9); PLATELET COUNT AUTOMATED 229 10*3/uL (130-400); RED CELL DISTRI WIDTH 12.9 % (0-14.5); WHITE BLOOD COUNT 7.7 10*3/uL (4.8-10.8)
[2023-01-02 22:02] LABS: EPITHELIAL CELLS 16-20
[2023-01-02 22:03] LABS: RBC 16-20 rbc/hpf (0-2)
[2023-01-02 22:09] LABS: ALKALINE PHOSPHATASE 74 U/L (46-116); BUN 8 mg/dl (9-23); CHLORIDE 104 mmol/L (98-107); POTASSIUM 3.9 mmol/L (3.4-5.1); SGPT/ALT 50 U/L (10-49); TOTAL PROTEIN 7.9 gm/dL (6.0-8.0)
[2023-01-02] MEDS ORDERED: ONDANSETRON4 MG SL (22:59)
[2023-01-02] MEDS ORDERED: POLYTRIM 1000010 M1 OD (22:59)
== END 2023-01-02 23:40 | disposition home or self-care (01) ==
LOC: ED 20:48
PROVIDERS: Nurse Practitioner Family
DX: A08.4 Viral intestinal infection, unspecified (principal); H10.11 Acute atopic conjunctivitis, right eye; J44.9 Chronic obstructive pulmonary disease, unspecified; E16.2 Hypoglycemia, unspecified; F32.A Depression, unspecified; F41.9 Anxiety disorder, unspecified; Z91.030 Bee allergy status; Z88.6 Allergy status to analgesic agent; Z88.1 Allergy status to other antibiotic agents; Z88.5 Allergy status to narcotic agent; Z91.040 Latex allergy status; Z91.018 Allergy to other foods; Z91.013 Allergy to seafood; Z91.041 Radiographic dye allergy status; Z98.890 Other specified postprocedural states; Z20.822 Contact with and (suspected) exposure to COVID-19; Z79.899 Other long term (current) drug therapy

== ENCOUNTER 2023-01-28 17:08 | Emergency (ER) | payer OTHER ==
[~2023-01-28] VITALS: Ht 158.7 cm; Wt 176.9 kg
[~2023-01-28 17:08] MED LIST changes: +ONDANSETRON4 MG SL; +POLYTRIM 1000010 M1 OD
[2023-01-28 18:23] LABS: BILIRUBIN Negative (Negative); BLOOD Negative (Negative); CLARITY Cloudy (Clear); COLOR Yellow (Yellow); GLUCOSE Negative (Negative); KETONE Negative (Negative); LEUKO ESTERASE 2+ (Negative); NITRITE Negative (Negative); PH 5.5 (4.5-8.0); SPECIFIC GRAVITY 1.025 (1.001-1.030)
[2023-01-28 18:31] LABS: BACTERIA 2+; RBC 0-2 rbc/hpf (0-2)
[2023-01-28] MEDS ORDERED: MACROBID100 M1 PO (18:40)
[2023-01-28] MEDS ORDERED: PYRIDIUM200 M1 PO (18:45)
== END 2023-01-28 18:45 | disposition home or self-care (01) ==
LOC: ED 17:08
PROVIDERS: Student in an Organized Health Care Education/Training Program
DX: N39.0 Urinary tract infection, site not specified (principal); J44.9 Chronic obstructive pulmonary disease, unspecified; E16.2 Hypoglycemia, unspecified; F41.9 Anxiety disorder, unspecified; F32.A Depression, unspecified; Z91.030 Bee allergy status; Z88.1 Allergy status to other antibiotic agents; Z88.5 Allergy status to narcotic agent; Z91.018 Allergy to other foods; Z91.040 Latex allergy status; Z91.041 Radiographic dye allergy status; Z91.013 Allergy to seafood; Z88.8 Allergy status to other drugs, medicaments and biological substances; Z88.6 Allergy status to analgesic agent; Z98.890 Other specified postprocedural states

== ENCOUNTER 2023-02-05 21:23 | Emergency (ER) | payer OTHER ==
[~2023-02-05] VITALS: Ht 165.1 cm; Wt 176.9 kg
[2023-02-05 22:07] LABS: BILIRUBIN Negative (Negative); BLOOD Negative (Negative); CLARITY Cloudy (Clear); COLOR Yellow (Yellow); GLUCOSE Negative (Negative); KETONE Trace (Negative); LEUKO ESTERASE 2+ (Negative); NITRITE Negative (Negative); PH 5.5 (4.5-8.0); SPECIFIC GRAVITY 1.025 (1.001-1.030)
[2023-02-05 22:25] LABS: BACTERIA 3+; EPITHELIAL CELLS TNTC
[2023-02-05 22:26] LABS: WBC 16-20 wbc/hpf (0-5)
[2023-02-06] MEDS ORDERED: SEPTDS PO (00:22)
== END 2023-02-06 00:24 | disposition home or self-care (01) ==
LOC: ED 21:23
PROVIDERS: Internal Medicine
DX: N39.0 Urinary tract infection, site not specified (principal); Z91.030 Bee allergy status; Z88.1 Allergy status to other antibiotic agents; Z91.018 Allergy to other foods; Z91.040 Latex allergy status; Z91.013 Allergy to seafood; Z88.8 Allergy status to other drugs, medicaments and biological substances

== ENCOUNTER 2023-09-29 23:48 | Emergency (ER) | payer OTHER ==
[~2023-09-29] VITALS: Ht 157.4 cm; Wt 179.6 kg
[2023-09-30 01:18] LABS: BILIRUBIN Negative (Negative); BLOOD Negative (Negative); CLARITY Cloudy (Clear); COLOR Dark Yellow (Yellow); GLUCOSE Negative (Negative); KETONE Trace (Negative); LEUKO ESTERASE Trace (Negative); NITRITE Negative (Negative); PH 5.5 (4.5-8.0); SPECIFIC GRAVITY >= 1.030 (1.001-1.030)
[2023-09-30 01:27] LABS: BASO % 0.3 % (0.0-1.0); EOS # 0.1 10*3/uL (0.0-0.4); EOS % 1.1 % (1.0-4.0); HEMATOCRIT 43.3 % (37.0-47.0); LYMPH % 35.1 % (27.0-41.0); MEAN CELL VOLUME 89.5 fl (81.0-99.0); MEAN CORPUSCULAR HGB 28.7 pg (27.0-31.0); MEAN CORPUSCULAR HGB CONC 32.1 g/dl (33.0-37.0); MEAN PLATELET VOLUME 9.9 fl (9.6-12.3); MONO # 0.5 10*3/uL (0.1-1.0); MONO % 4.3 % (3.0-9.0); NEUT # 6.7 10*3/uL (2.3-7.9); NEUT % 58.9 % (47.0-73.0); PLATELET COUNT AUTOMATED 247 10*3/uL (130-400); RED BLOOD COUNT 4.84 10*6/uL (4.10-5.10); RED CELL DISTRI WIDTH 13.2 % (0-14.5); WHITE BLOOD COUNT 11.4 10*3/uL (4.8-10.8)
[2023-09-30 01:35] LABS: EPITHELIAL CELLS 41-50
[2023-09-30 01:36] LABS: BACTERIA TRACE; CALCIUM OXALATE CRYSTALS 1+
[2023-09-30 01:49] LABS: ALKALINE PHOSPHATASE 89 U/L (46-116); BUN 10 mg/dl (9-23); CHLORIDE 106 mmol/L (98-107); SGPT/ALT 47 U/L (5-49); TOTAL PROTEIN 7.7 gm/dL (6.0-8.0)
[2023-09-30] MEDS ORDERED: MACROBID100 M1 PO (03:36)
== END 2023-09-30 03:49 | disposition home or self-care (01) ==
LOC: ED 23:48
PROVIDERS: Internal Medicine
DX: N39.0 Urinary tract infection, site not specified (principal); J44.9 Chronic obstructive pulmonary disease, unspecified; F32.A Depression, unspecified; F41.9 Anxiety disorder, unspecified; E16.2 Hypoglycemia, unspecified; Z91.030 Bee allergy status; Z88.6 Allergy status to analgesic agent; Z88.1 Allergy status to other antibiotic agents; Z88.5 Allergy status to narcotic agent; Z91.040 Latex allergy status; Z91.018 Allergy to other foods; Z91.041 Radiographic dye allergy status; Z91.013 Allergy to seafood; Z98.890 Other specified postprocedural states; Z87.891 Personal history of nicotine dependence

== ENCOUNTER 2024-03-28 22:59 | Emergency (ER) | payer OTHER ==
[~2024-03-28] VITALS: Wt 166.0 kg
[2024-03-28] MEDS ORDERED: Ondansetron Hydrochloride 4 MG TAB SL ONE (23:30)
[2024-03-28 23:39] LABS: BASO % 0.4 % (0.0-1.0); EOS # 0.1 10*3/uL (0.0-0.4); EOS % 0.8 % (1.0-4.0); HEMATOCRIT 41.4 % (37.0-47.0); LYMPH # 2.7 10*3/uL (1.3-4.4); LYMPH % 37.8 % (27.0-41.0); MEAN CELL VOLUME 89.8 fl (81.0-99.0); MEAN CORPUSCULAR HGB 29.5 pg (27.0-31.0); MEAN CORPUSCULAR HGB CONC 32.9 g/dl (33.0-37.0); MEAN PLATELET VOLUME 10.4 fl (9.6-12.3); MONO # 0.3 10*3/uL (0.1-1.0); MONO % 4.6 % (3.0-9.0); NEUT % 56.3 % (47.0-73.0); PLATELET COUNT AUTOMATED 205 10*3/uL (130-400); RED BLOOD COUNT 4.61 10*6/uL (4.10-5.10); RED CELL DISTRI WIDTH 13.3 % (0-14.5); WHITE BLOOD COUNT 7.1 10*3/uL (4.8-10.8)
[2024-03-28 23:59] LABS: BUN 11 mg/dl (9-23); CHLORIDE 109 mmol/L (98-107); POTASSIUM 3.3 mmol/L (3.4-5.1)
[2024-03-29] LABS: BILIRUBIN Negative (Negative); BLOOD 2+ (Negative); CLARITY Cloudy (Clear); COLOR Yellow (Yellow); GLUCOSE Negative (Negative); KETONE Trace (Negative); LEUKO ESTERASE 2+ (Negative); NITRITE Negative (Negative); PH 5.5 (4.5-8.0); SPECIFIC GRAVITY >= 1.030 (1.001-1.030)
[2024-03-29 00:04] LABS: BETA-HCG, QUANT < 3.0 mIU/mL (3-10)
[2024-03-29 00:10] LABS: BACTERIA 1+; EPITHELIAL CELLS 16-20; WBC 21-30 wbc/hpf (0-5)
[2024-03-29] MEDS ORDERED: Nitrofurantoin Monohydrate/N 100 MG CAP PO ONE (00:55)
[2024-03-29] MEDS ORDERED: POTASSIUM CHLORIDE 20 MEQ TAB PO ONE (00:55)
[2024-03-29] MEDS ORDERED: LORazepam 1 MG TAB PO ONE (00:55)
[2024-03-29] MEDS ORDERED: SEPTDS PO (01:09)
[2024-03-29] MEDS ORDERED: Sulfamethoxazole/Trimethopri 1 TAB TAB PO ONE (01:10)
== END 2024-03-29 01:16 | disposition home or self-care (01) ==
LOC: ED 22:59
PROVIDERS: Internal Medicine
DX: F41.9 Anxiety disorder, unspecified (principal); N39.0 Urinary tract infection, site not specified; E87.6 Hypokalemia; J44.9 Chronic obstructive pulmonary disease, unspecified; F32.A Depression, unspecified; E16.2 Hypoglycemia, unspecified; Z91.030 Bee allergy status; Z88.6 Allergy status to analgesic agent; Z88.1 Allergy status to other antibiotic agents; Z88.5 Allergy status to narcotic agent; Z91.018 Allergy to other foods; Z91.040 Latex allergy status; Z91.013 Allergy to seafood; Z88.8 Allergy status to other drugs, medicaments and biological substances; Z98.890 Other specified postprocedural states

== ENCOUNTER 2024-05-02 04:39 | Emergency (ER) | payer OTHER ==
[~2024-05-02] VITALS: Ht 157.4 cm; Wt 158.8 kg
[2024-05-02] MEDS ORDERED: Tdap Vaccine 0.5 ML SYR (Adult Vaccine) IM ONE (05:30)
[2024-05-02] MEDS ORDERED: VIBRAMYCIN100 MG PO (05:46)
[2024-05-02] MEDS ORDERED: Doxycycline Hyclate 100 MG CAP PO ONE (05:50)
== END 2024-05-02 06:04 | disposition home or self-care (01) ==
LOC: ED 04:39
DX: S91.011A Laceration without foreign body, right ankle, initial encounter (principal); F41.9 Anxiety disorder, unspecified; E87.6 Hypokalemia; G43.909 Migraine, unspecified, not intractable, without status migrainosus; K21.9 Gastro-esophageal reflux disease without esophagitis; Z98.890 Other specified postprocedural states; J44.9 Chronic obstructive pulmonary disease, unspecified; F32.A Depression, unspecified; Z91.030 Bee allergy status; Z88.6 Allergy status to analgesic agent; Z88.1 Allergy status to other antibiotic agents; Z88.5 Allergy status to narcotic agent; Z91.041 Radiographic dye allergy status; Z91.018 Allergy to other foods; Z91.040 Latex allergy status; Z91.013 Allergy to seafood; W22.8XXA Striking against or struck by other objects, initial encounter; Y93.89 Activity, other specified; Y92.89 Other specified places as the place of occurrence of the external cause; Y99.8 Other external cause status

== ENCOUNTER → 2024-07-21 | Outpatient (CLI) | payer OTHER | END | disposition home or self-care (01) | LOC: LAB 12:45 → US 13:00 | PROVIDERS: ATTEND Nurse Practitioner Women's Health | DX: N88.8 Other specified noninflammatory disorders of cervix uteri (principal); N83.209 Unspecified ovarian cyst, unspecified side; N64.52 Nipple discharge; R53.83 Other fatigue ==

== ENCOUNTER → 2024-07-31 | Outpatient (CLI) | payer OTHER | END | disposition home or self-care (01) | LOC: MAMMO 01:45 | PROVIDERS: ATTEND Nurse Practitioner Women's Health | DX: N64.52 Nipple discharge (principal) ==